=== PATIENT | male | born 1995 | race Two or more races ===

== ENCOUNTER 2017-10-23 21:21 | Emergency (ER) | payer SELFPAY ==
[~2017-10-23] VITALS: Ht 177.8 cm; Wt 90.7 kg
[2017-10-24 02:00] VITALS: BP 126/78
[2017-10-24] MEDS ORDERED: DEXAMETHASONE SOD PHOS 10MG/1ML VIAL INJ IM ONE (02:00)
[2017-10-24] MEDS ORDERED: cefTRIAXone SOD 1,000 MG VL ONE (02:08)
[2017-10-24] MEDS ORDERED: cefTRIAXone SOD 1,000 MG VL IM ONE (02:15)
== END 2017-10-24 02:36 | disposition home or self-care (01) ==
LOC: ER 21:21
DX: J06.9 Acute upper respiratory infection, unspecified (principal)
CPT/HCPCS: 96372; 99284; J0696; J1100